=== PATIENT | male | born 1970 | race Two or more races ===

== ENCOUNTER 2019-06-29 01:24 | Emergency (ER) | payer SELFPAY ==
[~2019-06-29] VITALS: Ht 172.7 cm; Wt 72.6 kg
[2019-06-29] MEDS ORDERED: LORAZEPAM INJ 2 MG/ML VIAL ONE (01:30)
[2019-06-29] MEDS ORDERED: IV NS 0.9% 1,000 ML BAG IV ONE ×2 (01:30→03:00)
[2019-06-29] MEDS ORDERED: LORAZEPAM INJ 2 MG/ML VIAL IVP ONE (01:30)
--- NOTE | 2019-06-29 01:35 | NUR ---
PT [facility] 85 & [employer] FOR EVALUATION OF HIGH HR AND DRUG ABUSE. NOTED W/ ABRASION ON L FOREHEAD. PT CONFUSED, NO ACUTE DISTRESS NOTED. PT CONNECTED TO THE MONITOR AND POX
[2019-06-29 01:42] LABS: BASOPHILS # (AUTO) 0.1 /CMM (0.0-0.2); BASOPHILS % (AUTO) 0.4 % (0.0-2.0); HEMATOCRIT 50 % (39-51); HEMOGLOBIN 16.3 g/dL (13.5-17.5); LYMPHOCYTES # (AUTO) 0.5 /CMM (0.8-4.8); LYMPHOCYTES % (AUTO) 3.8 % (20.0-44.0); MEAN CORPUSCULAR HGB CONC 33 g/dl (31.0-36.0); MEAN CORPUSCULAR VOLUME 90 fL (80-96); MONOCYTES # (AUTO) 0.5 /CMM (0.1-1.30); MONOCYTES % (AUTO) 3.5 % (2.0-12.0); NEUTROPHILS # (AUTO) 12.3 /CMM (1.8-8.9); NEUTROPHILS % (AUTO) 92.3 % (43.0-81.0); PLATELET COUNT (AUTO) 351 /CMM (150-450); RED BLOOD CELL COUNT(AUTO) 5.53 MIL/uL (4.5-6.0); WHITE BLOOD COUNT (AUTO) 13.3 K/uL (4.3-11.0)
[2019-06-29 01:56] LABS: ALANINE AMINOTRANSFERASE 37 U/L (12-78); ALBUMIN 4.4 g/dL (3.4-5.0); ALCOHOL, BLOOD < 3 mg/dL (0-0); ALKALINE PHOSPHATASE 74 U/L (46-116); ASPARTATE AMINOTRANSFERASE 41 U/L (15-37); BILIRUBIN,DIRECT 0.2 mg/dL (0.0-0.2); CALCIUM, SERUM 9.7 mg/dL (8.5-10.1); CARBON DIOXIDE 19 mmol/L (21-32); CHLORIDE 102 mmol/L (98-107); CREATININE 1.9 mg/dL (0.6-1.3); GLUCOSE 204 mg/dL (74-106); POTASSIUM 4.7 mmol/L (3.5-5.1); SODIUM SERUM 144 mmol/L (136-145); UREA NITROGEN, BLOOD 20 mg/dL (7-18)
[2019-06-29 02:05] LABS: SALICYLATE 1.8 mg/dL (2.8-20.0)
[2019-06-29 02:06] LABS: ACETAMINOPHEN 0 ug/ml (10-30)
[2019-06-29 02:33] LABS: APPEARANCE,URINE CLEAR (CLEAR); BILIRUBIN,URINE NEGATIVE (NEGATIVE); BLOOD, URINE NEGATIVE Ery/uL (NEGATIVE); COLOR,URINE YELLOW (YELLOW); KETONES,URINE 40 (NEGATIVE); LEUKOCYTE ESTERASE ,URINE NEGATIVE (NEGATIVE); NITRITE, URINE NEGATIVE (NEGATIVE); PROTEIN,URINE TRACE mg/dl (NEGATIVE); UGLUCOSE NEGATIVE (NEGATIVE); UROBILINOGEN,URINE 0.2 EU/dL (0.2)
[2019-06-29 02:39] LABS: BACTERIA,URINE Few /HPF (None Seen); RBC,URINE 0-2 /HPF (0-2); SQUAMOUS EPITHELIAL CELL,UR Rare /HPF (None Seen)
[2019-06-29] MEDS ORDERED: LORAZEPAM INJ 2 MG/ML VIAL IV ONE (03:00)
--- NOTE | 2019-06-29 04:05 | NUR ---
Patient discharged to custody in stable condition. Written and verbal after care instructions given. Patient verbalizes understanding of instruction.
[2019-06-29 04:06] VITALS: BP 138/91
== END 2019-06-29 04:07 ==
LOC: ER 01:25
DX: S00.81XA Abrasion of other part of head, initial encounter (principal); F15.10 Other stimulant abuse, uncomplicated; X58.XXXA Exposure to other specified factors, initial encounter; Y93.89 Activity, other specified; Y92.89 Other specified places as the place of occurrence of the external cause; Y99.8 Other external cause status
CPT/HCPCS: 36415; 80048; 80076; 80305; 80307; 80329; 81001; 85025; 96374; 99283; G0480; J2060; J7030 ×2; 81000-TC